=== PATIENT | female | born 1945 | race Caucasian/White ===

== ENCOUNTER 2023-04-01 05:50 | Observation (INO) | payer BC ==
[2023-03-26 10:48] LABS: Absolute Lymphocytes (CBC) 1.2 K/uL (0.7-4.9); Hematocrit 38.2 % (36.0-45.0); Lymphocytes % 25.4 % (15.3-44.8); MCV 90.7 fL (80-100); MPV 8.4 fL (7.6-11.3); Platelets 223 thou/uL (152-406); RBC Red Blood Cell Count 4.21 M/uL (3.86-4.86)
[2023-03-26 10:50] LABS: Potassium 3.8 mEq/L (3.5-5.1)
[2023-03-26 11:05] LABS: Protime INR 0.97
--- NOTE | 2023-03-26 12:01 | RAD REPORT ---
EXAM DESCRIPTION: RAD - Chest Pa And Lat (2 Views) - 03/26/2023 10:37 am CLINICAL HISTORY: Pre op pending knee arthroplasty. Hypertension COMPARISON: CHEST PA AND LAT 2 VIEW dated 07/07/2013; CHEST PA AND LAT 2 VIEW dated 12/13/2007; CHEST PA AND LAT 2 VIEW dated 06/02/2002 TECHNIQUE: PA and lateral views of the chest were obtained. FINDINGS: The lungs are clear. Hyperlucency and hyperinflation suggesting sequelae of COPD. Heart si ze is normal and central vasculature is within normal limits. No pleural effusion or pneumothorax see n. No acute bony finding noted. IMPRESSION: No acute cardiopulmonary process.
[2023-04-01] MEDS ORDERED: CELECOXIB 100 MG CAPSULE ONE (06:10)
[2023-04-01] MEDS ORDERED: CEFAZOLIN SODIUM 1 GM/VIAL ONE (06:10)
[2023-04-01] MEDS ORDERED: ACETAMINOPHEN 500 MG TAB ONE (06:10)
[2023-04-01] MEDS ORDERED: Ringers Lactate 1,000 ML IV ONE ×2 (06:11→08:52)
[2023-04-01] MEDS ORDERED: propofoL 1,000 MG/100 ML VIAL IV ONE (06:40)
[2023-04-01] MEDS ORDERED: FENTANYL CITR 100 MCG/2 ML ONE ×2 (06:47→08:35)
[2023-04-01] MEDS ORDERED: EPINEPHRINE 1 MG/ML VIAL ONE (06:55)
[2023-04-01] MEDS ORDERED: BUPIVACAINE 0.25% PF 30 ML VIAL ONE (06:56)
[2023-04-01] MEDS ORDERED: dexAMETHasone 4 MG/ML VIAL ONE (06:56)
[2023-04-01] MEDS ORDERED: LIDOCAINE 1% MPF 5 ML VIAL ONE (07:01)
[2023-04-01] MEDS ORDERED: TRANEXAMIC ACID 1,000 MG/10 ML VIAL IV ONE (07:27)
[2023-04-01] MEDS ORDERED: EPHEDRINE SULF 50 MG/ML VIAL ONE (08:16)
[2023-04-01] MEDS ORDERED: ONDANSETRON 4 MG/2 ML VIAL ONE (08:24)
[2023-04-01] MEDS ORDERED: KETAMINE HCL IN 0.9 % NACL 50 MG/5 ML SYRINGE IV ONE (08:51)
[2023-04-01] MEDS ORDERED: LABETALOL 20 MG/4ML SYRINGE IV ONE (09:01)
[2023-04-01] MEDS ORDERED: propofoL 200 MG/20 ML VIAL IV ONE ×2 (09:32→09:55)
--- NOTE | 2023-04-01 10:43 | P.BOP ---
Preoperative diagnosis: right knee osteoarthritis Postoperative diagnosis: Same Primary procedure: Right total knee arthroplasty Digital Marketing Assistant: NONE,NONE Estimated blood loss: 50 cc Specimen: Right knee bone remnants Findings: See dictation Anesthesia: General Implants: Biomet Vicky persona 5 CR femur narrow, C tibia, 11 CR poly, 29 patella Fluids & blood products: per anesthesia record; TT: 90 mins @ 300 mmHg Transferred to: Recovery Room Condition: Good
[2023-04-01] MEDS ORDERED: DOCUSATE NA 100 MG CAP PO PRN (10:44)
[2023-04-01] MEDS ORDERED: ACETAMINOPHEN 325 MG TABLET PO PRN (10:44)
[2023-04-01] MEDS ORDERED: TRAMADOL HCL 50 MG TAB PO PRN (10:46)
[2023-04-01] MEDS: HYDROMORPHONE HCL 1 MG/ML INJ ONE ×2 (11:18→11:28)
[2023-04-01 11:25] LABS: Hematocrit 35.4 % (36.0-45.0)
--- NOTE | 2023-04-01 14:12 | RAD REPORT ---
EXAM DESCRIPTION: RAD - Knee Right 2 View - 04/01/2023 11:01 am CLINICAL HISTORY: Post Op COMPARISON: No comparisons TECHNIQUE: Right knee, 3 views. FINDINGS: No fracture, dislocation or periosteal reaction. Sequelae of total knee arthroplasty. Comp onents in satisfactory alignment. Immediate postsurgical changes with soft tissue gas and skin staple s anteriorly. IMPRESSION: Expected sequelae of right total knee arthroplasty as above.
[2023-04-01 14:14] VITALS: BMI 24.5
[2023-04-01] MEDS: CEFAZOLIN 1 GM in NA CHLORIDE 0.9% 50 ML IVPB SCH (17:56)
[2023-04-01 19:59] VITALS: O2SAT 98
--- NOTE | 2023-04-01 21:38 | P.OP ---
Preoperative diagnosis: right knee osteoarthritis Postoperative diagnosis: same Primary procedure: Right total knee arthroplasty Anesthesia: general Estimated blood loss: 50 cc Specimen: right knee bone remnants Findings: See dictation Operative Technique: Indication For Procedure: Noemi is an 78 year-old female presenting to my clinic with signs, symptoms and x-ray findings consistent with severe right knee osteoarthritis. I discussed with the patient at length risks and benefits associated with operative and nonoperative treatment. She had failed conservative treatment measures and had significant difficulties with ADLs secondary to her pain. We discussed operative treatment and elected to proceed with right total knee arthroplasty. She expressed understanding and elected to proceed with operative treatment. Description Of Procedure: After informed consent was obtained, the patient was identified in the preoperative holding area. The right lower extremity was marked. The patient was then taken to the PACU where she underwent a right lower extremity adductor canal block performed by Anesthesia. She was then taken to the operating room, transferred to the operating table in supine fashion, and placed under general anesthesia. The right lower extremity was then prepped and draped in usual sterile fashion. A time-out was initiated. The correct patient and procedure were confirmed and identified. The patient did receive her preoperative prophylactic antibiotics. The right lower extremity was then exsanguinated and tourniquet was inflated to 300 mmHg. Approximately 15 cm longitudinal incision was made centered over the anterior aspect of the right knee. Dissection was then taken to the extensor mechanism and a medial parapatellar arthrotomy was performed. The patella was everted and dislocated laterally and the knee was flexed in the fat pad. Medial and lateral meniscus and ACL were all excised exposing the distal femur. Excess hypert rophic synovium was also excised within the suprapatellar pouch. The patient had an MRI of her right knee preoperatively for surgical planning and creation of cutting blocks. The cutting block was then placed over the distal femur and pins were then placed. The distal femoral cutting block was then placed over the pins. An george wing was then used to ensure proper depth cut and the distal femur was then cut. The chamfer cutting guide was then placed over the distal end of the femur. Anterior, posterior cuts as well as anterior and posterior chamfer cuts were then made again confirming proper depth of the cut using an George wing. Excess bone remnants were then sent to pathology for further evaluation. Next, attention was taken to the proximal tibia. A tibial jig and tibial cutting block was then placed on proximal aspect of the right tibia and locked into position. Pins were then placed and alignment guide was then used to confirm proper alignment of the cut and then coronal and sagittal planes. Once this was confirmed, the cutting jig was placed over the pins and the proximal tibia was cut. Sizing trays were then selected and size 10 mm spacer was used and there was good overall balance in flexion and extension. Next, the trial implants were then placed using the size 5 narrow CR femur and a size C tibia and an 11 mm CR poly. There was overall good range of motion and good stability. The trial implants were then removed. The wound was then irrigated thoroughly with normal saline and the knee was then injected with 20 cc of 0.5% Marcaine both in the posterior capsule and medial and lateral gutters as well as quadriceps tendon and periosteum. The tibia was then punched. The femur was drilled. The cement was then prepared on the back table. Cement was then placed first on the tibial surface followed by size C tibia. Excess cement was removed with [place] elevators. Size 5 narrow CR femur was then placed on the distal femur after cement was placed on the distal femur. Excess cement was then removed and a size 11 mm CR trial poly was then placed. The knee was held in extension as the cement hardened. Undersurface of the patella was prepared d ebriding osteophytes using rongeurs.. Cement was placed on the undersurface of the patella after it was cut and a size 29 patella was placed. Once the cement was hardened, the knee was ranged, there was good overall stability both in flexion, extension and as well as stability with varus and valgus stresses. Trial poly was then removed and a size 11 mm CR poly was then placed and locked into position. The knee was then ranged again. There was good overall range of motion both for flexion and extension with good stability. The wound was then irrigated again thoroughly with normal saline using pulse lavage. Tourniquet was let down. Hemostasis was achieved using Bovie electrocautery. Extensor mechanism was then approximated using a #1 Vicryl both in interrupted and running fashion. The fascia was then approximated using 0 Vicryl. Subcutaneous tissue was approximated with a 2-0 Vicryl. Skin was approximated using divya. Sterile dressings were applied. The patient was awakened and transferred back in stable condition Implants: Biomet Vicky Persona 5 narrow CR femur, C tibia, 11 CR poly, 29 patella Fluids & blood products: per anesthesia record; TT: 90 mins @ 300 mmHg Transferred to: Recovery Room Condition: Good
[2023-04-01] MEDS: HYDROCODONE/APAP 5/325 MG TAB PO PRN (22:30)
[2023-04-02] MEDS: CEFAZOLIN 1 GM in NA CHLORIDE 0.9% 50 ML IVPB SCH ×2 (00:29→10:20)
[2023-04-02] MEDS ORDERED: ENOXAPARIN 30 MG/0.3 ML SQ SCH (06:00)
[2023-04-02 07:29] LABS: Hematocrit 32.6 % (36.0-45.0)
[2023-04-02] MEDS ORDERED: PREVAGEN PO SCH (09:00)
[2023-04-02] MEDS ORDERED: DOCUSATE NA 100 MG CAP PO SCH (09:00)
[2023-04-02] MEDS ORDERED: BENAZEPRIL 20 MG TAB PO SCH (09:00)
[2023-04-02] MEDS ORDERED: AMLODIPINE 5 MG TAB PO SCH (09:00)
[2023-04-02] MEDS ORDERED: ATORVASTATIN 40 MG TAB PO SCH (09:00)
[2023-04-02] MEDS ORDERED: ESOMEPRAZOLE MAGNESIUM 20 MG PO SCH (09:00)
[2023-04-02] MEDS ORDERED: PANTOPRAZOLE 40MG TABLET PO SCH (09:00)
[2023-04-02] MEDS ORDERED: CELECOXIB 100 MG CAPSULE PO SCH (09:00)
[2023-04-02] MEDS ORDERED: HYDROXYCHLOROQUINE 200MG TAB PO SCH (09:00)
[2023-04-02] MEDS: HYDROCODONE/APAP 5/325 MG TAB PO PRN (10:19)
--- NOTE | 2023-04-02 10:36 | P.DS ---
Admission Date: 04/01/23 Discharge Date: 04/02/23 Disposition: DC HOME/HOME HEALTH CARE Discharge Condition: GOOD Reason for Admission: s/p right TKA Consultations: None Procedures: R TKA on 04/01/2023 Brief History of Present Illness: Patient was admitted to floor postoperatively after right total knee arthroplasty done on April 01, 2023. Hospital Course: Patient was admitted to floor in stable condition. Physical therapy was consulted to aid with mobilization. She mobilize safely on April 02, 2023 with her pain control. She will be discharged with home health physical therapy. She was given Xarelto to take at home for DVT prophylaxis. She will follow-up in 2 weeks for staple removal. Vital Signs/Physical Exam: Temp Pulse Resp BP Pulse Ox 97.7 F 72 18 142/51 H 97 04/02/23 07:44 04/02/23 07:44 04/02/23 07:44 04/02/23 07:44 04/02/23 07:44 Laboratory Data at Discharge: WBC 4.90 thou/uL (4.3-10.9) 03/26/23 10:23 Hgb 10.9 g/dL (12.0-15.0) L 04/02/23 06:50 Hct 32.6 % (36.0-45.0) L 04/02/23 06:50 Plt Count 223 thou/uL (152-406) 03/26/23 10:23 PT 10.7 SECONDS (9.5-12.5) 03/26/23 10:23 INR 0.97 03/26/23 10:23 APTT 30.9 SECONDS (24.3-36.9) 03/26/23 10:23 Sodium 141 mEq/L (136-145) 03/26/23 10:23 Potassium 3.8 mEq/L (3.5-5.1) 03/26/23 10:23 BUN 13 mg/dL (7-18) 03/26/23 10:23 Creatinine 0.71 mg/dL (0.55-1.02) 03/26/23 10:23 Glucose 98 mg/dL (74-106) 03/26/23 10:23 Home Medications: Amlodipine Besylate/Benazepril [Amlodipine-Benazepril 5-20 mg] 1 each PO DAILY 03/26/23 Atorvastatin Calcium 40 mg PO DAILY 03/26/23 Docusate [Colace Cap*] 100 mg PO DAILY 03/26/23 Esomeprazole Magnesium 20 mg PO DAILY 03/26/23 Hydroxychloroquine [Plaquenil*] 200 mg PO DAILY 03/26/23 Prevagen 1 cap PO DAILY 03/26/23 Hydrocodone 5/APAP 325 [[place] 5/325*] 1 tab PO Q4H PRN tab 04/02/23 traMADol HCL [Ultram*] 50 mg PO Q6H PRN tab 04/02/23 Physician Discharge Instructions: Keep dressing clean, dry and intact. Begin Xarelto tomorrow, April 03, 2023 with breakfast and take once daily until prescription is completed. Continue use of bilateral thigh-high OLEKSANDR hose to aid with swelling. Follow-up with Dr. Wang in 2 weeks for staple removal. Diet: Regular Activity: Weight bearing as tolerated Followup: Dayton Castro DO [Primary Care Provider] - Chandler Wang MD [ACTIVE - CAN ADMIT] - 1-2 Weeks
[2023-04-02 11:13] VITALS: BP 144/69; TEMP 97.6
== END 2023-04-02 13:30 | disposition home health service (06) ==
LOC: OR 05:50 → 4TH 12:45
PROVIDERS: ADMIT Orthopaedic Surgery Sports Medicine; ATTEND Orthopaedic Surgery Sports Medicine
PROC: 0SRC069 Replacement of Right Knee Joint with Oxidized Zirconium on Polyethylene Synthetic Substitute, Cemented, Open Approach (ICD-10-PCS; principal; 2023-04-01 08:00)
DX: M17.11 Unilateral primary osteoarthritis, right knee (principal); M25.561 Pain in right knee
CPT/HCPCS: 36415; 71046; 80048; 85014; 85018; 85025; 85610; 85730; 88304; 88305; 88311; 94010; 97110; 97116; 97139; 97161; 97530; C1776; J0171; J0690; J1100; J1170; J1650; J2001; J2405; J2704; J3010; J7120